=== PATIENT | male | born 1945 | race Caucasian/White ===

== ENCOUNTER 2017-10-03 18:26 | Emergency (ER) | payer MEDICARE, MEDICAID ==
[~2017-10-03] VITALS: Ht 165.1 cm; Wt 83.9 kg
[2017-10-03 18:49] VITALS: BP 117/69
--- NOTE | 2017-10-03 18:55 | Emergency Room Report ---
History of Present Illness General Chief Complaint: Upper Extremity Injury Source: Patient Present Illness HPI 71-year-old male patient with history of Parkinson's presents ER complaining of right hand pain. Patient reports that he punched a wall few months ago as well as fell on his right hand a few days ago. Reports that he fell out on his hand. Denies loss of consciousness, vomiting, vision changes, acute trauma. Reports pain in his right hand worsen his middle finger, denies wrist pain. Reports he is right-hand dominant. Denies other acute symptoms. Denies chest pain, shortness of breath, fever, vision changes or vertigo. Allergies: Coded Allergies: AZITHROMYCIN (Verified Allergy, Unknown, 10/03/17) PRAMIPEXOLE (Verified Allergy, Unknown, 10/03/17) Patient History Past Medical History: see triage record Reviewed Nursing Documentation: PMH: Agreed; PSxH: Agreed Nursing Documentation-PMH Hx Hypertension: Yes Review of Systems All Other Systems: negative except mentioned in HPI Physical Exam Vital Signs Date Time Temp Pulse Resp B/P (MAP) Pulse Ox O2 Delivery O2 Flow Rate FiO2 10/03/17 18:34 97.5 66 20 114/65 93 Room Air 97.5 Sp02 EP Interpretation: reviewed, normal General Appearance: well appearing, no apparent distress, alert, GCS 15, non- toxic Head: normocephalic, atraumatic Eyes: bilateral eye normal inspection, bilateral eye PERRL ENT: hearing grossly normal, normal pharynx, no angioedema, normal voice, uvula midline, moist mucus membranes Neck: full range of motion Respiratory: lungs clear, normal breath sounds, no rhonchi, no respiratory distress, no accessory muscle use, no wheezing, speaking full sentences Cardiovascular #1: regular rate, rhythm, no edema Cardiovascular #2: 2+ radial (R), 2+ radial (L) Musculoskeletal: back normal, digits/nails normal, gait/station normal, normal range of motion, other - no snuffbox tenderness, NVI, no wrist drop, full ROM, no deformity, tender - MTP of right middle finger on palmar side Neurologic: alert, oriented x3, responsive, motor strength/tone normal, sensory intact Psychiatric: mood/affect normal Skin: no rash Medical Decision Making PA Attestation Dr. Sandra is my supervising Physician whom patient management has been discussed with. Diagnostic Impression: Primary Impression: Proximal phalanx fracture of finger ER Course Pt. presents to the ED c/o right hand middle finger pain. Ddx considered but are not limited to fracture, sprain, strain, contusion, dislocation. No erythema, no warmth to touch, no fever, nontoxic appearing, low suspicion for septic joint. Vital signs: are WNL, pt. is afebrile Ordered X-ray and pain medication. ER COURSE Provided with pain medication. CURES reviewed, tramadol prescription provided for 12 days over 1 month ago, no recent prescriptions. Full range of motion, no fusiform swelling, sensation intact to light touch, no deformity, low suspicion for dislocation, TTP over the palmar middle finger MTP joint. An X-ray of the right hand shows nondisplaced fracture of the proximal phalanx of right finger per the preliminary reading. Informed patient of results. Splint was applied to the right middle finger was checked afterwards by me showing good alignment and support with distal neurovascular functioning intact. Patient instructed on RICE method: rest, ice, compression, elevation. Patient instructed on rest, ice and heat. Patient instructed to be NWB. Provided patient with contact information for orthopedic urgent care unable to contact primary care provider and get scheduled appointment for orthopedic referral. Patient states he will follow with his primary care provider this week. Followup with primary care provider. Discuss referral to ortho/pain management/ PT as needed. Discuss further imaging with MRI/CT as needed. DISCHARGE: -Rx provided for Tylenol for pain symptoms. At this time pt. is stable for d/c to home. Patient is resting comfortably, in no acute distress, nontoxic appearing, talking without difficulty. Will provide printed patient care instructions, and any necessary prescriptions. Patient instructed to follow with primary care provider in 3 - 5 days and to request further follow-up as needed. Care plan and follow up instructions have been discussed with the patient prior to discharge. Take medications as directed. Patient questions asked and answered. Patient reports understanding and agreement to treatment plan. ER precautions given, patient instructed to return to ER immediately for any new or worsening of symptoms. - Please note that this Emergency Department Report was dictated using [employer] technology software, occasionally this can lead to erroneous entry secondary to interpretation by the dictation equipment. Other X-Ray Diagnostic Results Other X-Ray Diagnostic Results : X-Ray ordered: right hand # of Views/Limited Vs Complete: 3 View EP Interpretation: Yes KAT Xray: Interpretation reviewed, by supervising MD, and agrees with findings. Interpretation: no dislocation, no soft tissue swelling, other - fracture of proximal phalanx of middle finger Impression: Other - nondisplaced fracture of proximal phalanx of right middle finger PA Scribe Text Leonardo Martinez PA-C Last Vital Signs Date Time Temp Pulse Resp B/P (MAP) Pulse Ox O2 Delivery O2 Flow Rate FiO2 10/03/17 18:49 97.5 87 18 117/69 99 Room Air 97.5 Disposition: HOME, SELF-CARE Condition: Stable Scripts Acetaminophen* (TYLENOL EXTRA STRENGTH*) 500 Mg Tablet 500 MG ORAL Q8H PRN for Prn Headache/Temp > 101, #30 TAB 0 Refills Prov: Manoj Martinez 10/03/17 Patient Instructions: Finger Fracture, [id number] Additional Instructions: Patient instructed to follow up with primary care provider and discuss further referral to orthopedics. Patient instructed on RICE method: rest, ice, compression, elevation. Patient instructed to NWB/WBAT. Take medications as directed. Patient questions asked and answered. ER precautions given, patient instructed to return to ER immediately for any new or worsening of symptoms. Manoj Martinez Oct 03, 2017 18:55
[2017-10-03] MEDS ORDERED: TYLENOL EXTRA500 MG ORAL (19:26)
[2017-10-03 19:41] VITALS: BP 117/69
--- NOTE | 2017-10-04 11:30 | Diagnostic Imaging Report ---
Indication: Pain, status post fall Technique: 3 views right hand Comparison: none Findings: There is a corner fracture at the lateral base of the third proximal phalanx. This is minimally distracted. There is also an age indeterminate fracture of the posterior corner of the base of the third distal phalanx. The margins of this appears somewhat corticated and this could be old. There are some degenerative proliferative changes of the third distal interphalangeal joint. No other acute fractures. No dislocations. The bones are osteoporotic. The joint spaces are preserved Impression: Positive for third proximal phalangeal fracture Age-indeterminate third distal phalangeal fracture-correlate with clinical history and findings Osteoporosis Findings essentially agree with the findings reported by the ER physician in the electronic medical record
== END 2017-10-03 19:41 | disposition home or self-care (01) ==
LOC: EMR 19:00
DX: S62.642A Nondisplaced fracture of proximal phalanx of right middle finger, initial encounter for closed fracture (principal); W19.XXXA Unspecified fall, initial encounter; Y92.9 Unspecified place or not applicable; G20 Parkinson's disease; I10 Essential (primary) hypertension; M81.0 Age-related osteoporosis without current pathological fracture; Z88.1 Allergy status to other antibiotic agents; Z88.8 Allergy status to other drugs, medicaments and biological substances
CPT/HCPCS: 99283

== ENCOUNTER 2018-01-23 00:37 | Emergency (ER) | payer MEDICARE, MEDICAID ==
[~2018-01-23] VITALS: Ht 167.6 cm; Wt 81.6 kg
[~2018-01-23 00:37] MED LIST: TYLENOL EXTRA500 MG ORAL
[2018-01-23] MEDS ORDERED: QUETIAPINE FUMA25 MG ORAL (00:42)
[2018-01-23] MEDS ORDERED: SIMVASTATIN20 MG ORAL (00:42)
[2018-01-23] MEDS ORDERED: LISINOPRIL20 MG ORAL (00:42)
[2018-01-23] MEDS ORDERED: TRAZODONE HCL150 MG ORAL (00:42)
[2018-01-23] MEDS ORDERED: FUROSEMIDE40 MG ORAL (00:42)
[2018-01-23] MEDS ORDERED: POTASSIUM CHLO20 ME1 ORAL (00:42)
[2018-01-23 00:45] VITALS: BP 122/56
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
[2018-01-23 01:26] LABS: BASOPHILS % (AUTO) 0.7 % (0.0-2.0); EOSINOPHILS % (AUTO) 0.7 % (0.0-3.0); HEMATOCRIT 36.9 % (42.0-52.0); HEMOGLOBIN 11.9 G/DL (14.2-18.0); LYMPHOCYTES % (AUTO) 11.9 % (20.0-45.0); MEAN CORPUSCULAR VOLUME 86 FL (80-99); MONOCYTES % (AUTO) 6.6 % (1.0-10.0); NEUTROPHILS % (AUTO) 80.1 % (45.0-75.0); PLATELET COUNT 271 K/UL (150-450); RED BLOOD COUNT 4.31 M/UL (4.70-6.10); WHITE BLOOD COUNT 10.4 K/UL (4.8-10.8)
[2018-01-23 01:40] LABS: ANION GAP 10 mmol/L (5-15); BLOOD UREA NITROGEN 38 mg/dL (7-18); CALCIUM 9.4 MG/DL (8.5-10.1); CARBON DIOXIDE 26 MMOL/L (21-32); CHLORIDE 110 MMOL/L (98-107); CREATININE 1.5 MG/DL (0.55-1.30); POTASSIUM 3.4 MMOL/L (3.5-5.1); SODIUM 146 MMOL/L (136-145)
[2018-01-23 01:50] LABS: ALANINE AMINOTRANSFERASE 9 U/L (12-78); ALBUMIN 3.8 G/DL (3.4-5.0); ALBUMIN/GLOBULIN RATIO 1.1 (1.0-2.7); ALKALINE PHOSPHATASE 78 U/L (46-116); ASPARTATE AMINO TRANSFERASE 22 U/L (15-37)
[2018-01-23 02:12] VITALS: BP 127/69
[2018-01-23 04:15] VITALS: BP 147/67
[2018-01-23 05:50] VITALS: BP 147/67
== END 2018-01-23 06:00 | disposition short-term general hospital (02) ==
LOC: EDBD 00:37 → EMR 00:55
DX: G20 Parkinson's disease (principal); F02.80 Dementia in other diseases classified elsewhere, unspecified severity, without behavioral disturbance, psychotic disturbance, mood disturbance, and anxiety; I10 Essential (primary) hypertension; Z88.1 Allergy status to other antibiotic agents
CPT/HCPCS: 36415; 80053; 85025; 99283